=== PATIENT | male | born 2000 | race Hispanic/Latino ===

== ENCOUNTER 2020-03-14 09:44 | Outpatient (CLI) | payer BC ==
--- NOTE | 2020-03-14 10:18 | RAD ---
Exam: 2 views lumbar spine HISTORY: Both injury. Back pain COMPARISON: none FINDINGS: 5 lumbar type vertebra. Preserved disc space heights and preserved vertebral body heights. No fractures or malalignment. Visualized sacrum and bony pelvis are intact IMPRESSION: No radiographic abnormality.
== END 2020-03-14 09:45 | disposition home or self-care (01) ==
LOC: BICRAD 09:44
PROVIDERS: ATTEND Specialist
DX: M54.9 Dorsalgia, unspecified (principal)
CPT/HCPCS: 72100

== ENCOUNTER 2020-05-27 10:01 | Outpatient (CLI) | payer BC | END 2020-05-27 10:02 | disposition home or self-care (01) | LOC: CTENTCT 10:01 | PROVIDERS: ATTEND Otolaryngology Plastic Surgery within the Head & Neck | DX: J32.9 Chronic sinusitis, unspecified (principal) | CPT/HCPCS: 70486 ==

== ENCOUNTER 2020-06-06 06:25 | Outpatient (CLI) | payer BC, OTHER ==
[2020-06-07 11:58] LABS: SARS-CoV-2 MS2 Positive; SARS-CoV-2 N Gene Negative; SARS-CoV-2 S Gene Negative; SARS-CoV-2 by NAA Not Detected (NotDetected); SARS-CoV-2 orf1ab Negative
== END 2020-06-06 06:26 | disposition home or self-care (01) ==
LOC: LABBT 06:25
PROVIDERS: ATTEND Otolaryngology Plastic Surgery within the Head & Neck
DX: J32.0 Chronic maxillary sinusitis (principal); J32.1 Chronic frontal sinusitis; J32.2 Chronic ethmoidal sinusitis; J34.3 Hypertrophy of nasal turbinates; J34.2 Deviated nasal septum; Z20.828 Contact with and (suspected) exposure to other viral communicable diseases
CPT/HCPCS: 87635; U0003

== ENCOUNTER 2020-06-11 06:44 | Day surgery (SDC) | payer BC ==
[2020-06-10 12:07] VITALS: BMI 32.8
[2020-06-11] MEDS ORDERED: AFRIN NASAL MIST 15 ML BOT ONE ×3 (07:01→09:35)
[2020-06-11] MEDS ORDERED: Midazolam HCl 2 mg/2 ml Vial ONE ×3 (07:25→09:18)
[2020-06-11] MEDS ORDERED: Lidocaine 1% w/Epinephrine 1:100K 20 ML VIAL ONE (07:45)
[2020-06-11] MEDS ORDERED: Midazolam HCl 5 mg/5 ml Vial ONE (07:45)
[2020-06-11] MEDS ORDERED: Bacitracin Zinc Ointment 30 gm TUBE ONE (07:45)
[2020-06-11] MEDS ORDERED: Fentanyl 100 MCG/2 ML VIAL ONE ×3 (07:45→10:05)
[2020-06-11] MEDS ORDERED: Labetalol HCl 100 MG/20 ML VIAL ONE (09:30)
[2020-06-11] MEDS ORDERED: Meperidine HCl/PF 25 MG/ML VIAL ONE (09:36)
[2020-06-11] MEDS ORDERED: hydrALAZINE 20 MG/ML VIAL ONE (10:21)
[2020-06-11] MEDS ORDERED: diphenhydrAMINE 50 MG/ML VIAL ONE (11:27)
[2020-06-11] MEDS ORDERED: Ondansetron PF 4 MG/2 ML Vial ONE (11:27)
[2020-06-11] MEDS ORDERED: Lidocaine 1% PF 5 ML VIAL ONE (11:27)
[2020-06-11] MEDS ORDERED: PROPOFOL 200 MG/20 ML VIAL ONE (11:27)
[2020-06-11] MEDS ORDERED: Dexamethasone 20 MG/5 ML VIAL ONE (11:27)
[2020-06-11] MEDS ORDERED: Hydrocodone-Acetamin 15 ML UDCUP ONE (11:40)
--- NOTE | 2020-06-11 15:35 | OP ---
DATE OF PROCEDURE: 06/11/2020 PREOPERATIVE DIAGNOSES: 1. Chronic rhinosinusitis. 2. Nasal septal deviation. 3. Bilateral inferior turbinate hypertrophy. 4. Nasal obstruction. POSTOPERATIVE DIAGNOSES: 1. Chronic rhinosinusitis. 2. Nasal septal deviation. 3. Bilateral inferior turbinate hypertrophy. 4. Nasal obstruction. PROCEDURES PERFORMED: 1. Bilateral endoscopic sinus surgery, total ethmoidectomies. 2. Bilateral endoscopic sinus surgery, maxillary antrostomies. 3. Bilateral endoscopic sinus surgery, frontal sinus exploration. 4. Nasal septoplasty. 5. Bilateral inferior turbinate submucosal resection. 6. [employer] image-guided cranial base navigational surgery. ESTIMATED BLOOD LOSS: 50 mL. COMPLICATIONS: None. ANESTHESIA: GETA. DESCRIPTION OF PROCEDURE: NASAL SEPTOPLASTY AND BILATERAL INFERIOR TURBINATE SUBMUCOSAL RESECTION: Patient was taken to the operating room and placed supine on the table. General endotracheal anesthesia was obtained by the anesthesia staff. Then 1% lidocaine with 1:100,000 epinephrine was injected into the nasal septum as well as the inferior turbinates. The patient was prepped and draped in standard surgical fashion. The Afrin pledgets were then removed. A Ramiro incision was made on the left nasal septum. Submucoperichondrial dissection was performed bilaterally of the deviated portions of the septum, which included the maxillary crest and the crest deviation, as well as the mid portion of the septum. Cartilage and bony deviation was removed, leaving a generous caudal and dorsal strut. Any straight pieces of cartilage were then placed within the cartilage press, pressed, straightened, and then placed between the mucoperichondrial flaps, which were then closed using a 4-0 gut stitch. The inferior turbinates were then punctured with the submucosal Coblation machine, and 3 separate coblations were delivered to the anterior inferior portion of the inferior turbinates. Following this, the nasal cavity was irrigated. All debris was removed. An orogastric tube was placed. Gastric contents and Patino splints were then placed in the nasal cavity and sutured with a 3-0 silk stitch. Following this, the Xeround image-guided system was set up, calibrated. It was noted to be within 1 mm of accuracy. All further instruments throughout the procedure were used under navigational guidance. The 0-degree endoscope was advanced to the nasal cavity. 1% lidocaine was then injected in the middle turbinates and lateral nasal wall. The middle turbinates were gently medialized using a [place] elevator and the uncinate process was identified. The uncinate process was anteriorly fractured using a ball-ended probe and was then removed using the 0-degree microdebrider and up-biting Blakesley forceps. Following this, the natural maxillary sinus ostia was then identified and was widened using the 40-degree microdebrider and straight Blakesley forceps bilaterally. Following this, the ethmoidal bulla was identified bilaterally and was punctured on its medial and inferior aspect and was removed using the microdebrider and up-biting Blakesley forceps bilaterally. Following this, the grand lamella was identified and was punctured into the posterior ethmoidal cells working from posterior to anterior, the ethmoidal cells were opened in a mucosal sparing technique. Following this, 45-degree endoscope along with the 40-degree microdebrider blade was used to further open the frontal recess cells and expose the frontal sinus ostia bilaterally. Frontal sinus ostia was then widened bilaterally using the 90-degree Blakesley forceps and the 40-degree microdebrider blade bilaterally. Following this, the nasal cavity was irrigated. Nasal pore packing was placed within the middle meatus. Patino splints were placed and secured, and the Xeround image-guided system was then turned off. The patient tolerated the procedure well. Job ID: [id number]
== END 2020-06-11 12:40 | disposition home or self-care (01) ==
LOC: SDC 06:44
PROVIDERS: ATTEND Otolaryngology Plastic Surgery within the Head & Neck
PROC: 09BS8ZZ Excision of Right Frontal Sinus, Via Natural or Artificial Opening Endoscopic (ICD-10-PCS; principal; 2020-06-11)
PROC: 09BM8ZZ Excision of Nasal Septum, Via Natural or Artificial Opening Endoscopic (ICD-10-PCS; principal; 2020-06-11)
PROC: 09BU8ZZ Excision of Right Ethmoid Sinus, Via Natural or Artificial Opening Endoscopic (ICD-10-PCS; principal; 2020-06-11)
PROC: 8E09XBZ Computer Assisted Procedure of Head and Neck Region (ICD-10-PCS; principal; 2020-06-11)
PROC: 099R8ZZ Drainage of Left Maxillary Sinus, Via Natural or Artificial Opening Endoscopic (ICD-10-PCS; principal; 2020-06-11)
PROC: 09BL8ZZ Excision of Nasal Turbinate, Via Natural or Artificial Opening Endoscopic (ICD-10-PCS; principal; 2020-06-11)
PROC: 09BT8ZZ Excision of Left Frontal Sinus, Via Natural or Artificial Opening Endoscopic (ICD-10-PCS; principal; 2020-06-11)
PROC: 09BV8ZZ Excision of Left Ethmoid Sinus, Via Natural or Artificial Opening Endoscopic (ICD-10-PCS; principal; 2020-06-11)
PROC: 099Q8ZZ Drainage of Right Maxillary Sinus, Via Natural or Artificial Opening Endoscopic (ICD-10-PCS; principal; 2020-06-11)
DX: J32.8 Other chronic sinusitis (principal); J34.3 Hypertrophy of nasal turbinates; J34.2 Deviated nasal septum; J34.89 Other specified disorders of nose and nasal sinuses; J45.909 Unspecified asthma, uncomplicated; Z79.899 Other long term (current) drug therapy
CPT/HCPCS: J0360; J1100; J1200; J2175; J2250; J2405; J2704; J3010

== ENCOUNTER 2021-03-28 21:33 | Emergency (ER) | payer BC ==
[2021-03-28] MEDS ORDERED: Ondansetron PF 4 MG/2 ML Vial ONE ×2 (22:02→22:33)
[2021-03-28 22:38] LABS: #Lymphocytes 1.2 thou/uL (1.20-3.40); #Monocytes 0.4 thou/uL (0.11-0.59); #Neutrophils 3.9 thou/uL (1.40-6.50); %Basophils 0.2 % (0.0-1.0); %Eosinophils 0.2 % (0.0-10.0); %Lymphocytes 21.1 % (21.0-51.0); %Monocytes 7.2 % (0.0-10.0); %Neutrophils 71.3 % (42.0-75.0); Hemoglobin 15.6 g/dL (14.0-18.0); Mean Corpuscular HGB CONC 35.1 g/dL (32.0-36.0); Mean Corpuscular Hemoglobin 31.2 pg (27.0-31.0); Mean Corpuscular Volume 88.9 fL (78.0-98.0); Mean Platelet Volume 8.9 fL (7.4-10.4); Platelet Count 125 thou/uL (130-400); RBC Distribution Width 11.7 % (11.5-14.5); Red Blood Cell (RBC) Count 4.99 mill/uL (4.70-6.10); White Blood Cell (WBC) Count 5.5 thou/uL (4.8-10.8)
[2021-03-28 22:56] LABS: ALT (SGPT) 207 U/L (8-55); AST (SGOT) 110 U/L (5-34); Albumin 4.3 g/dL (3.5-5.0); Alkaline Phosphatase 56 U/L (40-110); Anion Gap 15 mmol/L (10-20); BUN (Urea Nitrogen) 8 mg/dL (8.9-20.6); Bilirubin, Total 0.4 mg/dL (0.2-1.2); Calc. Creatinine Clearance 0 mL/min (70-130); Calcium 8.5 mg/dL (7.8-10.44); Carbon Dioxide 22 mmol/L (22-29); Chloride 106 mmol/L (98-107); Globulin 2.8 g/dL (2.4-3.5); Glucose 97 mg/dL (70-105); Magnesium 1.8 mg/dL (1.6-2.6); Potassium 3.7 mmol/L (3.5-5.1); Protein, Total 7.1 g/dL (6.0-8.3); Sodium 139 mmol/L (136-145)
[2021-03-28] MEDS ORDERED: Acetaminophen 500 MG TAB ONE (23:16)
== END 2021-03-29 00:04 | disposition home or self-care (01) ==
LOC: ERS 21:33
DX: U07.1 COVID-19 (principal); R11.2 Nausea with vomiting, unspecified; I10 Essential (primary) hypertension
CPT/HCPCS: 80053; 83735; 84484; 85025; 93005; 96374; J2405